=== PATIENT | female | born 1990 | race Caucasian/White ===

== ENCOUNTER → 2023-10-31 07:09 | Outpatient (REF) | payer BC, OTHER, SELFPAY | LOC: HWRCS 07:09 | PROVIDERS: ATTENDING PHYSICIAN Internal Medicine Cardiovascular Disease; FAMILY PHYSICIAN Internal Medicine | DX: Q21.10 Atrial septal defect, unspecified (principal); Q90.9 Down syndrome, unspecified | CPT/HCPCS: 93306 ==